=== PATIENT | male | born 1980 | race Caucasian/White ===

== ENCOUNTER 2025-07-30 17:27 | Emergency (ER) | payer OTHER ==
[2025-07-30 17:59] LABS: BASOPHILS ABSOLUTE AUTO 0.04 K/uL (0.00-0.20); BASOPHILS PERCENT AUTO 0.8 % (0.0-2.0); EOSINOPHILS ABSOLUTE AUTO 0.20 K/uL (0.00-0.50); EOSINOPHILS PERCENT AUTO 3.8 % (0.0-5.0); IMMATURE GRAN ABSOLUTE AUTO 0.02 10^3/uL (0.00-0.04); IMMATURE GRAN PERCENT AUTO 0.4 % (0.0-0.4); LYMPHOCYTES ABSOLUTE AUTO 2.33 K/uL (0.50-3.50); LYMPHOCYTES PERCENT AUTO 44.2 % (10.0-50.0); MONOCYTES ABSOLUTE AUTO 0.42 K/uL (0.00-1.00); MONOCYTES PERCENT AUTO 8.0 % (2.0-14.0); NEUTROPHILS ABSOLUTE AUTO 2.26 K/uL (1.40-7.00); NEUTROPHILS PERCENT AUTO 42.8 % (45.0-80.0); PLATELET COUNT,PLT 245 K/uL (150-350); RED BLOOD CELL COUNT 5.46 M/uL (4.33-5.41); RED CELL DISTRIBUTION WIDTH 13.4 % (11.2-14.1); WHITE BLOOD CELL COUNT,WBC 5.3 K/uL (4.0-10.2)
[2025-07-30 18:21] LABS: ALANINE AMINOTRANSFERASE,ALT 30.0 U/L (12-78); ASPARTATE AMNIOTRANSFERASE,AST 17.0 U/L (15-37); BILIRUBIN TOTAL 0.4 mg/dL (0.2-1.0); BLOOD UREA NITROGEN,BUN 13.0 mg/dL (7-18); CARBON DIOXIDE,CO2 30.6 mmol/L (21.0-32.0); CHLORIDE,CL 104.0 mmol/L (98-107); CREATININE 1.32 mg/dL (0.51-1.17); EST CRCL DRUG DOSING (CG) 68.37 mL/min; GLUCOSE RANDOM 105.0 mg/dL (70-99); POTASSIUM,K 4.0 mmol/L (3.5-5.1); PROTEIN TOTAL,TP 7.8 g/dL (6.4-8.2); SODIUM,NA 142.0 mmol/L (136-145)
[2025-07-30 18:23] LABS: ESTIMATED GFR 68.0 mL/min (>=60)
[2025-07-30] MEDS ORDERED: Take Home: traMADol 50 MG, 4 Tab Pack PO ONE (18:45)
== END 2025-07-30 19:08 | disposition home or self-care (01) ==
LOC: LL.ED 17:27
DX: M79.89 Other specified soft tissue disorders (principal); I10 Essential (primary) hypertension; E66.9 Obesity, unspecified; Z79.899 Other long term (current) drug therapy; Z91.81 History of falling
CPT/HCPCS: 36415; 80053; 85025; 85379; 99283; A9270-GY